=== PATIENT | male | born 1965 | race Hispanic/Latino ===

== ENCOUNTER 2019-05-21 11:21 | Emergency (ER) | payer SELFPAY ==
--- NOTE | 2019-05-21 11:43 | Emergency Department Report ---
Blank Doc - Documentation Documentation: 54-year-old male that presents with right flank pain. Stated saw some kidney stone passing yesterday. This initial assessment/diagnostic orders/clinical plan/treatment(s) is/are subject to change based on patient's health status, clinical progression and re- assessment by fellow clinical providers in the ED. Further treatment and workup at subsequent clinical providers discretion. Patient/guardians urged not to elope from the ED as their condition may be serious if not clinically assessed and managed. Initial orders include: 1- Patient sent to [facility] for further evaluation and treatment 2- UA
[2019-05-21 11:44] VITALS: BP 118/82
--- NOTE | 2019-05-21 12:35 | Emergency Department Report ---
ED Dysuria HPI - HPI Chief Complaint: Abdominal Pain Stated Complaint: KIDNEY STONE Time Seen by Provider: 05/21/19 11:42 Duration: 1 Day Severity: None Symptoms: Dysuria: Yes (once yesterday), Frequency: No, Suprapubic Pain: No, Flank Pain: No, Fever: No, Hematuria: No, Abdominal Pain: No, Previous UTI's: No Other History: he is a 54-year-old male who presents to the ED stating he passed a ureteral stone yesterday that caused him some discomfort. Patient states that after that he had no other symptoms. Patient denies fever, frequency, abdominal pain or symptoms. ED Review of Systems ROS: Stated complaint: KIDNEY STONE Other details as noted in HPI Comment: All other systems reviewed and negative ED Past Medical Hx - Past Medical History Previous Medical History?: No - Surgical History Past Surgical History?: No - Social History Smoking Status: Never Smoker Substance Use Type: None - Medications Home Medications: Home Medications Medication Instructions Recorded Confirmed Last Taken Type Tamsulosin [Flomax] 0.4 mg PO QDAY #5 cap 05/21/19 Unknown Rx Dysuria Exam - Exam General: Vital signs noted. No distress. Alert and acting appropriately. Exam: Yes Moist Mucous Membranes, No CVA Tenderness, No Abdominal Tenderness, No Rigidity or Guarding Exam: Nontender abdomen, no suprapubic tenderness ED Course Vital Signs 05/21/19 11:33 Temperature 97.9 F Pulse Rate 69 Respiratory 15 Rate Blood Pressure 118/82 O2 Sat by Pulse 99 Oximetry ED Medical Decision Making - Medical Decision Making 54-year-old male presents status post passed ureteral stone. Patient reported seeing the small stone in his urine yesterday. The time the patient presented to the ER patient is nonsymptomatic. Discussed with patient to follow up with primary care physician at this time. Vital signs are normal patient is in no acute distress. He states to understanding of instructions and will follow-up in 3-5 days Critical care attestation.: If time is entered above; I have spent that time in minutes in the direct care of this critically ill patient, excluding procedure time. ED Disposition Clinical Impression: Urethral calculus Disposition: DC-01 TO HOME OR SELFCARE Is pt being admited?: No Does the pt Need Aspirin: No Condition: Stable Instructions: How to Strain Your Urine (ED), Kidney Stones (ED) Additional Instructions: Make sure to follow up with the primary care physician as discussed. Take all your medications as you've been prescribed. If you have any worsening symptoms or develop new symptoms please return to ED immediately. Prescriptions: Tamsulosin [Flomax] 0.4 mg PO QDAY #5 cap Referrals: [facility] [Outside] - [facility] - [facility] Forms: Accompanied Note, Work/School Release Form(ED) Time of Disposition: 12:35
[2019-05-21 13:19] LABS: Bacteria,Urine 1+ /HPF (Negative); Bilirubin,Urine NEG (Negative); Blood,Urine NEG (Negative); Color,Urine Yellow (Yellow); Protein,Urine <15 mg/dL mg/dL (Negative); RBC,Urine < 1.0 /HPF (0.0-6.0); Urobilinogen,Urine < 2.0 mg/dL (<2.0); WBC,Urine < 1.0 /HPF (0.0-6.0)
== END 2019-05-21 12:58 | disposition home or self-care (01) ==
LOC: ED 11:21
DX: N20.2 Calculus of kidney with calculus of ureter (principal); Z79.899 Other long term (current) drug therapy
CPT/HCPCS: 81001; 87086